=== PATIENT | female | born 1980 | race Two or more races ===

== ENCOUNTER 2024-02-19 14:32 | Emergency (ER) | payer OTHER ==
[~2024-02-19] VITALS: Ht 160 cm; Wt 62.6 kg
[~2024-02-19 14:32] MED LIST: ZITHROMAX TRI-500 MG PO
[2024-02-19] MEDS ORDERED: TRAMADOL HCL 50 MG TABLET PO ONE (15:30)
[2024-02-19] MEDS ORDERED: DEXAMETHASONE SODIUM PHOSPHATE 4 MG/ML VIAL IM ONE (15:30)
[2024-02-19] MEDS ORDERED: ORPHENADRINE CITRATE 30 MG/ML AMPUL IM ONE (15:30)
== END 2024-02-19 17:24 | disposition home or self-care (01) ==
LOC: ER 14:34
DX: M54.89 Other dorsalgia (principal); Z88.6 Allergy status to analgesic agent